=== PATIENT | male | born 1950 | race Caucasian/White ===

== ENCOUNTER 2018-12-13 13:45 | Day surgery (SDC) | payer MEDICARE, BC ==
[2018-12-13] VITALS (14 sets, daily range): BP systolic 90–114; BP diastolic 60–81
[~2018-12-13] VITALS: Ht 188 cm; Wt 104.3 kg
[2018-12-13] MEDS ORDERED: fentaNYL/PF 50MCG/1 ML 2ML syringe IV ONE (14:15)
[2018-12-13] MEDS ORDERED: normal saline 1000ml 1,000 ML IV SCH (14:15)
[2018-12-13] MEDS ORDERED: MIDAZolam 5mg/ml 2ml vial IV ONE (14:15)
[2018-12-13] MEDS ORDERED: OMEP20CA10 PO (14:49)
[2018-12-13] MEDS ORDERED: ATOR20TA66 PO (14:49)
[2018-12-13] MEDS ORDERED: META800T87 PO (14:49)
[2018-12-13] MEDS ORDERED: BENA10TA74 PO (14:49)
[2018-12-13] MEDS ORDERED: APIX5TAB3 PO (14:49)
[2018-12-13] MEDS ORDERED: SPIR25TA PO (14:49)
[2018-12-13] MEDS ORDERED: CYCL-1 PO (14:49)
[2018-12-13] MEDS ORDERED: DRON400T2 PO (14:49)
[2018-12-13] MEDS ORDERED: ACET-812 PO (14:49)
[2018-12-13] MEDS ORDERED: OXYC5CAP19 PO (14:49)
== END 2018-12-13 17:50 | disposition home or self-care (01) ==
LOC: SSTAY O 13:45
PROVIDERS: ATTEND Internal Medicine Interventional Cardiology
DX: I48.0 Paroxysmal atrial fibrillation (principal); G47.33 Obstructive sleep apnea (adult) (pediatric); Z79.899 Other long term (current) drug therapy; Z95.818 Presence of other cardiac implants and grafts
CPT/HCPCS: 92960; 93005; J2250; J3010; J7030

== ENCOUNTER 2024-10-07 10:11 | Outpatient (CLI) | payer MEDICARE ==
[~2024-10-07 10:11] MED LIST: ACET-812 PO; APIX5TAB3 PO; ATOR20TA66 PO; BENA10TA74 PO; CYCL-1 PO; DRON400T7 PO; META800T87 PO; OMEP20CA15 PO; OXYC5CAP22 PO; SPIR25TA PO
[2024-10-07 10:56] LABS: BASOPHILS % (AUTO) 0.8 % (0-1); EOSINOPHILS # (AUTO) 0.1 X10'3 (0-0.9); EOSINOPHILS % (AUTO) 2.2 % (0-6); HEMOGLOBIN 16.3 g/dl (14.0-17.9); LYMPHOCYTES # (AUTO) 1.6 X10'3 (1.1-4.8); LYMPHOCYTES % (AUTO) 31.6 % (21-51); MEAN CORPUSCULAR HGB CONC 33.9 g/dL (33.0-36.5); MEAN CORPUSCULAR VOLUME 91.4 FL (78-98); MEAN PLATELET VOLUME 7.2 FL (7.4-10.4); MONOCYTES # (AUTO) 0.4 X10'3 (0-0.9); NEUTROPHILS # (AUTO) 2.9 X10'3 (1.8-7.7); NEUTROPHILS % (AUTO) 57.4 % (42-75); PLATELET COUNT 163 X10'3 (140-440); RED BLOOD COUNT 5.25 X10'6 (4.70-6.10); RED CELL DISTRIBUTION WIDTH 13.5 % (11.5-14.5)
[2024-10-07 11:06] LABS: APTT 30 SECONDS (22-32); INR 1.1 INR; PROTHROMBIN TIME 11.7 SECONDS (9.0-12.0)
[2024-10-07 11:07] LABS: ALBUMIN 3.8 G/DL (3.4-5.0); ANION GAP 5 (8-16); BLOOD UREA NITROGEN 18 MG/DL (7-18); BUN/CREATININE RATIO 14.9 (10.0-20.0); CALCIUM 8.7 MG/DL (8.5-10.1); CHLORIDE 105 MMOL/L (99-107); CHOL/HDL RATIO 2.2 (0.00-4.99); CHOLESTEROL 138 MG/DL (0-200); CREATININE 1.21 MG/DL (0.60-1.10); GLUCOSE 102 MG/DL (70-104); HDL CHOLESTEROL 62 MG/DL (35-60); LDL CHOLESTEROL 64 MG/DL (50-100); POTASSIUM 4.6 MMOL/L (3.5-5.1); SODIUM 138 MMOL/L (135-145); TRIGLYCERIDES 71 MG/DL (20-135); eGFR 59 ML/MIN
== END 2024-10-07 23:59 | disposition home or self-care (01) ==
LOC: LAB 10:11 → EDSTATUS 10-11 15:30
PROVIDERS: ATTEND Student in an Organized Health Care Education/Training Program
DX: I49.1 Atrial premature depolarization (principal); I48.0 Paroxysmal atrial fibrillation; E78.5 Hyperlipidemia, unspecified
CPT/HCPCS: 36415; 80048; 80061; 85025; 85610; 85730

== ENCOUNTER 2025-02-23 14:50 | Outpatient (CLI) | payer MEDICARE ==
--- NOTE | 2025-02-23 18:35 | RADIOLOGY REPORT ---
PROCEDURE: MR MRI LUMBAR SPINE INDICATION: LUMBAR BACK PAIN, LUMBAR SPONDYLOSIS, COMP FX L2 Exam Date: 02/23/2025 02:46 PM COMPARISON: None TECHNIQUE: MRI lumbar spine without intravenous contrast. FINDINGS: Grade 1 anterolisthesis of L1 on L2. Chronic compression deformity of L2. Old treated compression def ormity of L3. Postsurgical changes L4-5. There are degenerative endplate changes including modic e ndplate changes with anterior and lateral osteophytes throughout the lumbar spine. The visualized dis terry spinal cord and conus medullaris are within normal limits. The conus medullaris appears to termi keely within normal limits. The visualized retroperitoneal and paraspinal soft tissues are unremarkab le. The following axial levels are detailed below: T12-L1: There is a mild circumferential disc bulge. No significant central canal or neuroforaminal s tenosis. L1-L2: There is a severe circumferential disc bulge complicated by facet arthropathy narrowing the central canal to 4 mm with associated moderate to severe bilateral neuroforaminal stenosis. L2-L3: There is a severe circumferential disc bulge complicated by facet arthropathy narrowing the central canal to 4 mm with associated moderate to severe bilateral neuroforaminal stenosis. L3-L4: There is a severe circumferential disc bulge complicated by facet arthropathy narrowing the central canal to 8 mm with associated moderate to severe bilateral neuroforaminal stenosis. L4-L5: Cavb-jn-rahukmen bilateral neural foraminal stenosis. No significant central canal stenosis. L5-S1: There is a moderate circumferential disc bulge complicated by facet arthropathy associated wi th mild to moderate right and moderate to severe left neuroforaminal stenosis. No significant central canal stenosis. IMPRESSION: 1. Chronic compression deformity of L2 and L3. Multilevel moderate to advanced degenerative disease. Grade 1 anterolisthesis of L1 on L2. Severe central canal stenosis L1-2 and L2-3. Moderate central ca nal stenosis L3-4. Neural foraminal stenosis as above. HS:Y
== END 2025-02-23 23:59 | disposition home or self-care (01) ==
LOC: MRI02 14:50
PROVIDERS: ATTEND Nurse Practitioner Adult Health
DX: S32.020A Wedge compression fracture of second lumbar vertebra, initial encounter for closed fracture (principal); M54.50 Low back pain, unspecified; M46.1 Sacroiliitis, not elsewhere classified; M53.3 Sacrococcygeal disorders, not elsewhere classified; I48.91 Unspecified atrial fibrillation; M47.26 Other spondylosis with radiculopathy, lumbar region; M51.16 Intervertebral disc disorders with radiculopathy, lumbar region; M48.07 Spinal stenosis, lumbosacral region; M47.818 Spondylosis without myelopathy or radiculopathy, sacral and sacrococcygeal region; Z79.01 Long term (current) use of anticoagulants; X58.XXXA Exposure to other specified factors, initial encounter; Y93.89 Activity, other specified; Y92.89 Other specified places as the place of occurrence of the external cause; Y99.8 Other external cause status; M51.34 Other intervertebral disc degeneration, thoracic region; M43.16 Spondylolisthesis, lumbar region
CPT/HCPCS: 72148

== ENCOUNTER 2025-08-09 11:25 | Outpatient (CLI) | payer MEDICARE ==
--- NOTE | 2025-08-09 13:27 | RADIOLOGY REPORT ---
CLINICAL INDICATION: PAIN IN RIGHT HIP COMPARISON: None TECHNIQUE: Multiplanar, multi-sequence MRI of the right hip was performed without intravenous contrast. Contrast: None INTERPRETATION: Joint space: There is no effusion. Bones and articular cartilage: There is no fracture, bone marrow edema or avascular necrosis. No marrow replacing lesion. The alignment is normal. There is no focal articular cartilage defect. Tendons, muscles and bursae: There is no tendon abnormality. Regional muscles are normal in bulk and signal characteristics. There is no evidence of bursitis. Acetabular labrum: No labral tear is identified. Soft tissues: Mild right hip subcutaneous edema. No pelvic lymphadenopathy. No intrapelvic free fluid. IMPRESSION: 1. No evidence of internal derangement in the right hip. 2. Mild subcutaneous edema in the right hip, nonspecific.
--- NOTE | 2025-08-09 13:53 | RADIOLOGY REPORT ---
CLINICAL INDICATION: PAIN IN RIGHT AND LEFT HIP COMPARISON: None. TECHNIQUE: Multiplanar, multi-sequence MRI of the left hip was performed without intravenous contrast. Contrast: None INTERPRETATION: Joint space: There is no effusion. Bones and articular cartilage: Small osteophytes at the left femoral head neck junction. There is no fracture, bone marrow edema or avascular necrosis. The alignment is normal. There is no focal articular cartilage defect. Tendons and and bursae: There is no tendon abnormality. There is no evidence of bursitis. Acetabular labrum: No labral tear is identified. Other findings: There is subcutaneous edema in the left hip. No lymphadenopathy. IMPRESSION: 1. Mild degenerative changes in the left hip. No acute osseous, ligament or tendon abnormality. 2. Nonspecific subcutaneous edema in the left hip.
== END 2025-08-09 23:59 | disposition home or self-care (01) ==
LOC: MRI02 11:25
PROVIDERS: ATTEND Physician Assistant
DX: M16.12 Unilateral primary osteoarthritis, left hip (principal); M25.551 Pain in right hip; M25.552 Pain in left hip
CPT/HCPCS: 73721

== ENCOUNTER 2025-08-25 14:01 | Outpatient (CLI) | payer MEDICARE ==
--- NOTE | 2025-08-25 15:38 | RADIOLOGY REPORT ---
EXAM: MR MRI THORACIC SPINE CLINICAL HISTORY: LOW BACK PAIN;SPONDYLOSIS W/O MYELOPATHY OR RADICULOPATHY,LUMBAR REGION COMPARISON: None TECHNIQUE: MRI imaging of the thoracic spine was performed on a MR imaging system without intravenous contrast. FINDINGS: Adequate Study Quality Alignment: Mild levoscoliosis. Vertebrae: Vertebral body height maintained. Vertebral Marrow: Normal. Epidural Space: Normal. Spinal Cord: Normal. Discs: Diffuse loss of height and signal intensity. Ligaments: Normal. Other None. IMPRESSION: 1. Mild scoliosis with degenerative disc disease. There is no cord compression and no evidence of myelopathy. Incidental note made of a bulging disc at L1-L2
== END 2025-08-25 23:59 | disposition home or self-care (01) ==
LOC: MRI02 14:01
PROVIDERS: ATTEND Nurse Practitioner Adult Health
DX: M51.34 Other intervertebral disc degeneration, thoracic region (principal); M54.50 Low back pain, unspecified; M47.816 Spondylosis without myelopathy or radiculopathy, lumbar region; M96.1 Postlaminectomy syndrome, not elsewhere classified; Z98.1 Arthrodesis status; T84.84XA Pain due to internal orthopedic prosthetic devices, implants and grafts, initial encounter; M70.61 Trochanteric bursitis, right hip; M41.84 Other forms of scoliosis, thoracic region
CPT/HCPCS: 72146